=== PATIENT | male | born 1960 | race Caucasian/White ===

== ENCOUNTER 2017-06-23 21:00 | Observation (INO) | payer MEDICARE, OTHER ==
[~2017-06-23 21:00] MED LIST: AMLO5TAB22 PO; CLOP75; IOHEXOL 350 MG/ML 10 ML VIAL (for RAD DIAG) IVCONTRAST ONE; LOSA100T3 PO; PROT40TA PO; ROSU10
[2017-06-23 21:08] VITALS: TEMP 98.5
[2017-06-23] MEDS ORDERED: SODIUM CHLOR 0.9% 1000 ML INJ 1,000 ML IV ONE (21:11)
[2017-06-23 21:12] VITALS: O2SAT 99
[2017-06-23 21:18] VITALS: BP 145/80; PULSE 70; RESP 16; O2SAT 100
--- NOTE | 2017-06-23 21:37 | RADRPT ---
EXAM DATE/TIME: 06/23/2017 21:24 [facility] COMPARISON: CT BRAIN W/O CONTRAST, December 30, 2015, 5:23. INDICATIONS : Stroke alert; left sided weakness. RADIATION DOSE: 37.93 CTDIvol (mGy) This report was called by to Dr Kramer at MEDICAL HISTORY : Non-responsive. SURGICAL HISTORY : Non-responsive. ENCOUNTER: Initial ACUITY: 1 day PAIN SCALE: Non-responsive LOCATION: cranial TECHNIQUE: Multiple contiguous axial images were obtained of the head. Using automated exposure control and adj ustment of the mA and/or kV according to patient size, radiation dose was kept as low as reasonably a chievable to obtain optimal diagnostic quality images. DICOM format image data is available electro nically for review and comparison. FINDINGS: CEREBRUM: The ventricles are normal for age. No evidence of midline shift, mass lesion, hemorrhage or acute in farction. No extra-axial fluid collections are seen. POSTERIOR FOSSA: The cerebellum and brainstem are intact. The 4th ventricle is midline. The cerebellopontine angle i s unremarkable. EXTRACRANIAL: The visualized portion of the orbits is intact. SKULL: The calvaria is intact. No evidence of skull fracture. CONCLUSION: Normal examination for a patient of this age. No significant change has occurred. Ameya Gaston MD on June 23, 2017 at 21:33 Board Certified Radiologist. This report was verified electronically.
[2017-06-23 21:41] LABS: AUTOMATED NEUTROPHIL # 5.1 TH/MM3 (1.8-7.7); BASOPHIL # 0.1 TH/MM3 (0-0.2); BASOPHIL % 0.6 % (0.0-2.0); EOSINOPHIL # 0.2 TH/MM3 (0-0.4); EOSINOPHIL % 1.9 % (0.0-4.0); HEMATOCRIT 43.5 % (39.0-51.0); HEMOGLOBIN 15.6 GM/DL (13.0-17.0); LYMPH % 39.6 % (9.0-44.0); MEAN CELL VOLUME 93.8 FL (80.0-100.0); MEAN CORPUSCULAR HEMOGLOBIN 33.6 PG (27.0-34.0); MEAN CORPUSCULAR HGB CONC 35.8 % (32.0-36.0); MEAN PLATELET VOLUME 8.8 FL (7.0-11.0); MONOCYTE # 0.7 TH/MM3 (0-0.9); NEUT % 50.9 % (16.0-70.0); PLATELET COUNT 161 TH/MM3 (150-450); RED BLOOD COUNT 4.63 MIL/MM3 (4.50-5.90); RED CELL DISTRIBUTION WIDTH 13.2 % (11.6-17.2)
--- NOTE | 2017-06-23 21:45 | RADRPT ---
EXAM DATE/TIME: 06/23/2017 21:24 [facility] COMPARISON: CT BRAIN W/O CONTRAST, June 23, 2017, 21:24. INDICATIONS : Stroke alert; left sided weakness. IV CONTRAST: 86 cc Omnipaque 350 (iohexol) IV ; Cumulative dose for multiple exams. RADIATION DOSE: 25.54 CTDIvol (mGy) ; Combined studies MEDICAL HISTORY : Non-responsive. SURGICAL HISTORY : Non-responsive. ENCOUNTER: Initial ACUITY: 1 day PAIN SCALE: Non-responsive LOCATION: cranial TECHNIQUE: Volumetric scanning was performed using a multi-row detector CT scanner. The data was post processed with a variety of visualization algorithms including full volume maximum intensity projection, multi -planar sliding thin slab reformation, curved planar reformation, and surface rendering techniques. Using automated exposure control and adjustment of the mA and/or kV according to patient size, radiat ion dose was kept as low as reasonably achievable to obtain optimal diagnostic quality images. DICO M format image data is available electronically for review and comparison. FINDINGS: The distal internal carotid arteries are widely patent bilaterally. The anterior and middle cerebral circulation is well visualized. No large or central thrombus is seen. Both vertebrals are patent. The basilar is patent. The posterior cerebral circulation is widely paten t bilaterally. No aneurysm is identified. No arteriovenous malformation is evident. CONCLUSION: 1. Negative CT angiogram of the brain. No large or central vessel occlusion identified. Cam Jarvis MD on June 23, 2017 at 21:41 Board Certified Radiologist. This report was verified electronically.
[2017-06-23 21:53] LABS: TROPONIN I LESS THAN 0.02 NG/ML (0.02-0.05)
--- NOTE | 2017-06-23 21:54 | RADRPT ---
EXAM DATE/TIME: 06/23/2017 21:24 [facility] COMPARISON: CT BRAIN W/O CONTRAST, June 23, 2017, 21:24. INDICATIONS : Stroke alert; left sided weakness. IV CONTRAST: 86 cc Omnipaque 350 (iohexol) IV ; Cumulative dose for multiple exams. RADIATION DOSE: 25.54 CTDIvol (mGy) ; Combined studies MEDICAL HISTORY : Non-responsive. SURGICAL HISTORY : Non-responsive. ENCOUNTER: Initial ACUITY: 1 day PAIN SCALE: Non-responsive LOCATION: neck Elevated flow velocities and ICA/CCA ratios have been found to correlate with increased degrees of vessel stenosis, calculated as percentage of diameter relative to a normal segment of distal ICA/CCA. TECHNIQUE: Volumetric scanning was performed using a multirow detector CT scanner. The data was post processed with a variety of visualization algorithms including full-volume maximum intensity projection, multip lanar sliding thin-slab reformation, curved-planar reformation, and surface-rendering techniques. Us ing automated exposure control and adjustment of the mA and/or kV according to patient size, radiatio n dose was kept as low as reasonably achievable to obtain optimal diagnostic quality images. DICOM f ormat image data is available electronically for review and comparison. FINDINGS: AORTIC ARCH: There is normal anatomic branching of the great vessels from the arch. There is mild stenosis at the origin of the left subclavian. The remainder of the great vessels appear widely patent. RIGHT CAROTID: The common carotid is widely patent. There is atherosclerotic plaquing at the bifurcation with both h kamaljit and soft plaque present. This results in a mild degree of stenosis in the origin of the right int ernal carotid this is estimated to be at only approximately 10-15%. The more cephalad portion of inte rnal carotid is widely patent. LEFT CAROTID: The common carotid is widely patent. There is atherosclerotic plaquing at the bifurcation with predom inantly hard plaque present. This results in only minimal stenosis in the origin of the right interna l carotid. This is estimated to be in the range of 10% by NASCET criteria. VERTEBRALS: The vertebral arteries have a symmetric diameter. No stenotic lesions are seen. CONCLUSION: 1. Atherosclerotic plaquing of the bifurcations. There is moderate soft plaque present on the right. There is no hemodynamically significant stenosis evident. 2. Both vertebral arteries are widely patent. 3. Emphysematous changes in the lung apices. Cam Jarvis MD on June 23, 2017 at 21:49 Board Certified Radiologist. This report was verified electronically.
[2017-06-23 22:00] LABS: PROTHROMBIN TIME - PATIENT 10.3 SEC (9.8-11.6)
[2017-06-23] MEDS ORDERED: OXYC1TAB63 PO (22:10)
[2017-06-23] MEDS ORDERED: ALPR0.5T3 PO (22:10)
[2017-06-23] MEDS ORDERED: DIVA500T PO (22:10)
[2017-06-23] MEDS ORDERED: ONDANSETRON ODT 4 MG TAB PO ONE (22:30)
[2017-06-23] MEDS ORDERED: ACETAMINOPHEN 325 MG TAB PO ONE (22:30)
[2017-06-23] MEDS ORDERED: KETOROLAC TROMETHAMINE 30 MG/ML (IVP) VIAL IV PUSH ONE (23:00)
--- NOTE | 2017-06-24 00:02 | PD ---
HPI Chief Complaint: Neuro Symptoms/ Deficits Time Seen by Provider: 21:10 Travel History International Travel<30 days: No Contact w/Intl Traveler<30days: No Traveled to known affect area: No History of Present Illness HPI Patient is a 57 year old male who comes in with stroke like symptoms. Patient is having difficulty speaking and is not moving his left side. He came in through triage and says he drove himself here. Patient says that he woke up from a nap with these symptoms about 30 minutes ago. He says he was napping for about 4 hours. He has very jumbled speech, however he then very clearly stated "can I have my bag." He complains of a headache. He denies chest pain or shortness of breath. He has history of stroke in the past and history of carotid endarterectomy on the right. Severity is moderate. PFSH Past Medical History Heart Rhythm Problems: No Cardiovascular Problems: No High Cholesterol: Yes Chest Pain: Yes Congestive Heart Failure: No Cerebrovascular Accident: Yes (x 5) Coronary Artery Disease: Yes Diabetes: No Diminished Hearing: No Hypertension: Yes Myocardial Infarction: Yes (STATES HE HAD SILENT RI IN THE PAST) Past Surgical History Abdominal Surgery: Yes (AORTA BY FEM POP' 95 BYPASS) Cardiac Surgery: Yes (FEM POP 2007) Cholecystectomy: Yes Coronary Artery Bypass Graft: Yes Joint Replacement: Yes (LEFT HIP REPLACED 2000) Other Surgery: Yes (mass removed from pancreas, fem pop, right carotid) Social History Alcohol Use: No Tobacco Use: Yes (1ppd) Substance Use: No Allergies-Medications (Allergen,Severity, Reaction): Coded Allergies: Sulfa (Sulfonamide Antibiotics) (Unverified Allergy, Severe, RASH, 06/23/17 ) penicillin G (Unverified Allergy, Severe, THROAT CLOSE, 06/23/17) lorazepam (Unverified Allergy, Mild, AGITATION, 06/23/17) Reported Meds & Prescriptions Reported Meds & Active Scripts Active Reported Divalproex DR (Divalproex Sodium) 500 Mg Tabdr 500 Mg PO BID Oxycodone-Acetaminophen 5-325 mg Tab 1 Tab PO Q4H PRN Alprazolam 0.5 Mg Tab 0.5 Mg PO Q12HR PRN Review of Systems Except as stated in HPI: all other systems reviewed are Neg General / Constitutional: No: Fever, Chills Eyes: No: Blurred Vision HENT: Positive: Headaches Cardiovascular: No: Chest Pain or Discomfort Respiratory: No: Shortness of Breath Gastrointestinal: No: Nausea, Vomiting Musculoskeletal: No: Myalgias, Edema Skin: No Rash, No Change in Pigmentation Neurologic: Positive: Weakness, Slurred Speech Physical Exam Narrative GENERAL: Awake and alert, no acute distress. SKIN: Focused skin assessment warm/dry. No wounds or signs of infection. HEAD: Atraumatic. Normocephalic. EYES: Pupils equal and round and reactive. No scleral icterus. Extraocular movements intact. ENT: Mucous membranes pink and moist. NECK: Trachea midline. No JVD. CARDIOVASCULAR: Regular rate and rhythm. No murmur appreciated. RESPIRATORY: No accessory muscle use. Clear to auscultation. Breath sounds equal bilaterally. GASTROINTESTINAL: Abdomen soft, non-tender, nondistended. MUSCULOSKELETAL: No obvious deformities. No clubbing. No cyanosis. No edema. NEUROLOGICAL: Awake and alert. No obvious cranial nerve deficits. Motor grossly within normal limits. aphasia, that sporadically clears. Refusing to move his left arm or leg. However it seems to be poor effort. Data Data Last Documented VS Vital Signs Date Time Temp Pulse Resp B/P (MAP) Pulse Ox O2 Delivery O2 Flow Rate FiO2 06/23/17:18 70 16 145/80 (101) 100 Room Air 06/23/17 21:12 21 06/23/17 21:08 98.5 Orders Orders Diet Npo (06/24/17 Breakfast) Activity Bed Rest (06/23/17 ) Electrocardiogram (06/23/17 ) I-Stat Profile (06/23/17 21:11) Prothrombin Time / Inr (Pt) (06/23/17 21:11) Act Partial Throm Time (Ptt) (06/23/17 21:11) Complete Blood Count With Diff (06/23/17 21:11) Fibrinogen (06/23/17 21:11) Creatine Kinase (Cpk) (06/23/17 21:11) Troponin I (06/23/17 21:11) Ua Includes Microscopic (06/23/17 21:11) Drug Screen, Random Urine (06/23/17 21:11) Type And Screen (06/23/17 21:11) Ct Brain W/O Iv Contrast(Rout) (06/23/17 ) Cta Brain W Iv Contrast W 3d (06/23/17 21:11) Cta Neck W Iv Contrast W 3d (06/23/17 21:11) Consult Neurology (06/23/17 ) Blood Glucose (06/23/17 21:11) Ecg Monitoring (06/23/17 21:11) Neuro Checks Q2HX12,Q4H (06/23/17 21:11) Nursing Bedside Swallow Assess .ONCE (06/23/17 21:11) Iv Access Insert/Monitor (06/23/17 21:11) NPO (06/23/17 21:11) Oximetry (06/23/17 21:11) Resp Oxygen Nc Stroke (06/23/17 ) Sodium Chlor 0.9% 1000 Ml Inj (Ns 1000 M (06/23/17 21:11) Cath For Specimen (06/23/17 21:11) Iohexol 350 Inj (Omnipaque 350 Inj) (06/23/17 20:45) Acetaminophen (Tylenol) (06/23/17 22:30) Ondansetron Odt (Zofran Odt) (06/23/17 22:30) Ketorolac Inj (Toradol Inj) (06/23/17 23:00) (Hub Use Only)Inp Phy Cons/Ref (06/23/17 ) Labs Laboratory Tests Test 06/23/17 21:17 White Blood Count 10.0 TH/MM3 Red Blood Count 4.63 MIL/MM3 Hemoglobin 15.6 GM/DL Bedside Hemoglobin 14.6 G/DL Hematocrit 43.5 % Bedside Hematocrit 43.0 % Mean Corpuscular Volume 93.8 FL Mean Corpuscular Hemoglobin 33.6 PG Mean Corpuscular Hemoglobin Concent 35.8 % Red Cell Distribution Width 13.2 % Platelet Count 161 TH/MM3 Mean Platelet Volume 8.8 FL Neutrophils (%) (Auto) 50.9 % Lymphocytes (%) (Auto) 39.6 % Monocytes (%) (Auto) 7.0 % Eosinophils (%) (Auto) 1.9 % Basophils (%) (Auto) 0.6 % Neutrophils # (Auto) 5.1 TH/MM3 Lymphocytes # (Auto) 4.0 TH/MM3 Monocytes # (Auto) 0.7 TH/MM3 Eosinophils # (Auto) 0.2 TH/MM3 Basophils # (Auto) 0.1 TH/MM3 CBC Comment DIFF FINAL Differential Comment Prothrombin Time 10.3 SEC Prothromb Time International Ratio 1.0 RATIO Activated Partial Thromboplast Time 25.7 SEC Fibrinogen 257 mg/dL Bedside Sodium 138 MMOL/L Bedside Potassium 3.5 MMOL/L Bedside Chloride 105 MMOL/L Bedside Blood Urea Nitrogen 30 MG/DL Bedside Creatinine 1.4 MG/DL Bedside Glucose 86 MG/DL Total Creatine Kinase 82 U/L Troponin I LESS THAN 0.02 NG/ML MDM Medical Screen Exam Complete: Yes Emergency Medical Condition: Yes Differential Diagnosis CVA versus ICH versus TIA versus psychosis Narrative Course Patient is a 57-year-old male who drove himself to the hospital with strokelike symptoms. In the room, he was having trouble speaking, then said "can I have my bag" very clearly. Stroke alert called. IV established, labs sent. Patient taken to CT. CT of his head was negative. Patient is outside the window for TPA, being at least 4-1/2 hours from last seen normal. I spoke with Dr. Kelsey neurology regarding the patient. He will consult. Labs show no acute abnormalities. Patient continues to complain of headache. He is given a migraine cocktail. He will be admitted for further management. Last 24 hours Impressions Head CTA 06/23/171 Signed Impressions: Service Date/Time: Friday, June 23, 2017 21:24 - CONCLUSION: 1. Negative CT angiogram of the brain. No large or central vessel occlusion identified. Cam Jarvis MD Head CT 06/23/17 0000 Signed Impressions: Service Date/Time: Friday, June 23, 2017 21:24 - CONCLUSION: Normal examination for a patient of this age. No significant change has occurred. Ameya Gaston MD Stroke Alert NIHSS NIH Stroke Scale Result: 9 NIHSS Time Completed: 21:11 Thrombolytic Contraindications Contraindications Comment: unknown time of onset (>4.5 hrs) Diagnosis Diagnosis: Primary Impression: CVA (cerebral vascular accident) Qualified Codes: I63.9 - Cerebral infarction, unspecified Admitting Physician Requests: Admit Dina Kramer MD Jun 24, 2017 00:02
[2017-06-24] MEDS ORDERED: HEPARIN SODIUM - SQ 10,000 UNITS/ML VIAL SQ SCH (00:15)
[2017-06-24] MEDS ORDERED: DEXTROSE 50% IN WATER 50 ML VIAL(D50) IV PUSH PRN (00:15)
[2017-06-24] MEDS ORDERED: SODIUM CHLORIDE 0.9% FLUSH 10 ML FLUSH IV FLUSH PRN (00:15)
[2017-06-24] MEDS ORDERED: GLUCAGON 1 MG/ML VIAL OTHER PRN (00:15)
[2017-06-24] MEDS ORDERED: diphenhydrAMINE HCL 50 MG/ML VIAL IV PUSH ONE (00:30)
[2017-06-24] MEDS ORDERED: PROCHLORPERAZINE INJ 10 MG/2 ML VIAL IV PUSH ONE (00:30)
--- NOTE | 2017-06-24 00:42 | HHI.HP ---
[facility] Unknown Admission Diagnosis Trauma Diagnoses: Travel History International Travel<30 Days: No Contact w/Intl Traveler <30 Da: No Traveled to Known Affected Are: No History of Present Illness 57-year-old male with past medical history significant for hypertension, hyperlipidemia, peripheral vascular disease, coronary artery disease and depression presents to the emergency department for what he describes as a stroke. The patient reports that he took a 3 hour nap and upon waking he was a phasic with left upper and lower extremity paralysis. The patient reports he has a history of a CVA last occurring 1.5 years ago at that time he was started on Plavix for which she is compliant. He reports he has a left upper extremity minor residual weakness without any further deficits. Patient denies any chest pain or shortness of breath. Denies fever/chills. No nausea/vomiting/ diarrhea. Complains of a severe headache. Review of Systems Except as stated in HPI: all other systems reviewed are Neg Past Family Social History Past Medical History hypertension, hyperlipidemia, peripheral vascular disease, coronary artery disease, previous CVA and depression Past Surgical History Femoral-popliteal bypass Carotid endarterectomy on the right Aortic bypass Cholecystectomy Removal of pancreatic mass (benign) Reported Medications Reported Meds & Active Scripts Active Reported Divalproex DR (Divalproex Sodium) 500 Mg Tabdr 500 Mg PO BID Oxycodone-Acetaminophen 5-325 mg Tab 1 Tab PO Q4H PRN Alprazolam 0.5 Mg Tab 0.5 Mg PO Q12HR PRN Allergies: Coded Allergies: Sulfa (Sulfonamide Antibiotics) (Unverified Allergy, Severe, RASH, 06/23/17 ) penicillin G (Unverified Allergy, Severe, THROAT CLOSE, 06/23/17) lorazepam (Unverified Allergy, Mild, AGITATION, 06/23/17) Family History Patient was adopted and is not aware of his family history. Social History Smokes approximately one pack per day. Denies alcohol and illicit drugs. Physical Exam Vital Signs Vital Signs Date Time Temp Pulse Resp B/P (MAP) Pulse Ox O2 Delivery O2 Flow Rate FiO2 06/23/17 21:18 70 16 145/80 (101) 100 Room Air 06/23/17 21:12 99 06/23/17 21:12 99 21 06/23/17 21:08 98.5 Physical Exam GENERAL: male lying in bed SKIN: No rashes, ecchymoses or lesions. Cool and dry. HEAD: Atraumatic. Normocephalic. No temporal or scalp tenderness. EYES: Pupils equal round and reactive. Extraocular motions intact. No scleral icterus. No injection or drainage. ENT: Nose without bleeding, purulent drainage or septal hematoma. Throat without erythema, tonsillar hypertrophy or exudate. Uvula midline. Airway patent. NECK: Trachea midline. No JVD or lymphadenopathy. Supple, nontender, no meningeal signs. CARDIOVASCULAR: Regular rate and rhythm without murmurs, gallops, or rubs. RESPIRATORY: Clear to auscultation. Breath sounds equal bilaterally. No wheezes , rales, or rhonchi. GASTROINTESTINAL: Abdomen soft, non-tender, nondistended. No hepato-splenomegaly , or palpable masses. No guarding. MUSCULOSKELETAL: Extremities without clubbing, cyanosis, or edema. No joint tenderness, effusion, or edema noted. No calf tenderness. . NEUROLOGICAL: Awake and alert. Cranial nerves II through XII intact. Patient's speech is slurred and slow which she reports is different than his baseline. He has complete paralysis of the left upper and lower extremity although participation in the exam is questionable. Laboratory Laboratory Tests Test 06/23/17 21:17 White Blood Count 10.0 Red Blood Count 4.63 Hemoglobin 15.6 Bedside Hemoglobin 14.6 Hematocrit 43.5 Bedside Hematocrit 43.0 Mean Corpuscular Volume 93.8 Mean Corpuscular Hemoglobin 33.6 Mean Corpuscular Hemoglobin Concent 35.8 Red Cell Distribution Width 13.2 Platelet Count 161 Mean Platelet Volume 8.8 Neutrophils (%) (Auto) 50.9 Lymphocytes (%) (Auto) 39.6 Monocytes (%) (Auto) 7.0 Eosinophils (%) (Auto) 1.9 Basophils (%) (Auto) 0.6 Neutrophils # (Auto) 5.1 Lymphocytes # (Auto) 4.0 Monocytes # (Auto) 0.7 Eosinophils # (Auto) 0.2 Basophils # (Auto) 0.1 CBC Comment DIFF FINAL Differential Comment Prothrombin Time 10.3 Prothromb Time International Ratio 1.0 Activated Partial Thromboplast Time 25.7 Fibrinogen 257 Bedside Sodium 138 Bedside Potassium 3.5 Bedside Chloride 105 Bedside Blood Urea Nitrogen 30 Bedside Creatinine 1.4 Bedside Glucose 86 Total Creatine Kinase 82 Troponin I LESS THAN 0.02 Result Diagram: 06/23/172116 Caprini VTE Risk Assessment Caprini VTE Risk Assessment: No/Low Risk (score <= 1) Caprini Risk Assessment Model Point Value = 1 Point Value = 2 Point Value = 3 Point Value = 5 Age 41-60 Minor surgery BMI > 25 kg/m2 Swollen legs Varicose veins or History of unexplained or recurrent spontaneous Oral contraceptives or hormone replacement Sepsis (< 1 month) Serious lung disease, including pneumonia (< 1 month) Abnormal pulmonary function Acute myocardial infarction Congestive heart failure (< 1 month) History of inflammatory bowel disease Medical patient at bed rest Age 61-74 Arthroscopic surgery Major open surgery (> 45 min) Laparoscopic surgery (> 45 min) Malignancy Confined to bed (> 72 hours) Immobilizing plaster cast Central venous access Age >= 75 History of VTE Family history of VTE Factor V Leiden Prothrombin [id number] Lupus anticoagulant Anticardiolipin antibodies Elevated serum homocysteine Heparin-induced thrombocytopenia Other congenital or acquired thrombophilia Stroke (< 1 month) Elective arthroplasty Hip, pelvis, or leg fracture Acute spinal cord injury (< 1 month) Prophylaxis Regimen Total Risk Factor Score Risk Level Prophylaxis Regimen 0-1 Low Early ambulation 2 Moderate Order ONE of the following: *Sequential Compression Device (SCD) *Heparin 5000 units SQ BID 3-4 Higher Order ONE of the following medications: *Heparin 5000 units SQ TID *Enoxaparin/Lovenox 40 mg SQ daily (WT < 150 kg, CrCl > 30 mL/min) *Enoxaparin/Lovenox 30 mg SQ daily (WT < 150 kg, CrCl > 10-29 mL/min) *Enoxaparin/Lovenox 30 mg SQ BID (WT < 150 kg, CrCl > 30 mL/min) AND/OR *Sequential Compression Device (SCD) 5 or more Highest Order ONE of the following medications: *Heparin 5000 units SQ TID (Preferred with Epidurals) *Enoxaparin/Lovenox 40 mg SQ daily (WT < 150 kg, CrCl > 30 mL/min) *Enoxaparin/Lovenox 30 mg SQ daily (WT < 150 kg, CrCl > 10-29 mL/min) *Enoxaparin/Lovenox 30 mg SQ BID (WT < 150 kg, CrCl > 30 mL/min) AND *Sequential Compression Device (SCD) Assessment and Plan Assessment and Plan Assessment/plan: 1. Possible CVA versus TIA Head CT negative for acute process, personally reviewed MRI/MRA brain pending, carotid ultrasound pending Echo pending Neurology consulted, appreciate recommendations Head of bed flat Nothing by mouth Permissive hypertension Neuro checks Neurology consulted, appreciate recommendations 2. History of previous CVA Continue Plavix once medication reconciliation complete Patient given aspirin in the ED 3. Hypertension/hyperlipidemia/peripheral vascular disease/CABG Continue home medications once reconciled 4. Depression Continue home medications 5. ARSLAN Creatinine 1.4, baseline unknown IV fluid hydration Monitor renal function FEN NPO NS at 70 cc/hr Electrolytes: status post repletion with IV potassium, EP BMP in the a.m. Heparin Pat Mera MD Jun 24, 2017 00:42
[2017-06-24] MEDS ORDERED: SODIUM CHLOR 0.9% 1000 ML INJ 1,000 ML IV SCH (00:45)
[2017-06-24] MEDS ORDERED: ASPIRIN 325 MG TAB PO ONE (00:45)
[2017-06-24] MEDS ORDERED: POTASSIUM CHLOR 10 MEQ PREMIX 100 ML IV SCH (01:00)
[2017-06-24] MEDS ORDERED: INSULIN ASPART SUPPLEMENTAL SCALE SQ SCH (08:00)
[2017-06-24] MEDS ORDERED: SODIUM CHLORIDE 0.9% FLUSH 10 ML FLUSH IV FLUSH SCH (09:00)
[2017-06-24] MEDS ORDERED: DIVALPROEX DR 500 MG TABEC PO SCH (09:00)
[2017-06-24 09:57] LABS: HEMOGLOBIN A1C 5.8 % (4.3-6.0)
--- NOTE | 2017-06-24 13:24 | EKG ---
Date Performed: 06/23/2017 Time Performed: 21:11:34 PTAGE: 57 years EKG: Sinus rhythm NONSPECIFIC ST & T-WAVE ABNORMALITY BORDERLINE ECG Compared to PREVIOUS TRACING , there is a slight improvement in the ST-T changes inferolaterally. PRE VIOUS TRACIN12/30/2015 05.02.01 DOCTOR: Levi Garcia Interpretating Date/Time 06/24/2017 13:24:05
== END 2017-06-24 00:55 | disposition left against medical advice (07) ==
LOC: NEPE 21:00 → INTOOBSV 06-24 00:07 → NEDA 06-24 00:07
PROVIDERS: ADMIT Surgery Trauma Surgery; ATTEND Surgery Trauma Surgery
DX: I63.9 Cerebral infarction, unspecified (principal); R51 Headache; R07.9 Chest pain, unspecified; E78.00 Pure hypercholesterolemia, unspecified; I25.10 Atherosclerotic heart disease of native coronary artery without angina pectoris; R94.31 Abnormal electrocardiogram [ECG] [EKG]; I10 Essential (primary) hypertension; I25.2 Old myocardial infarction; Z86.73 Personal history of transient ischemic attack (TIA), and cerebral infarction without residual deficits
CPT/HCPCS: 70450; 70496; 70498; 80048; 82550; 83036; 84484; 85025; 85384; 85610; 85730; 86850; 86900; 86901; 93005; 96374; 99285; G0378; J1885; J7030; Q9967